=== PATIENT | female | born 2000 | race Caucasian/White ===

== ENCOUNTER 2024-12-26 07:34 | Observation (INO) ==
[2024-12-26] MEDS: SODIUM CHLORIDE 0.9% 1,000 ML IV STA (08:16)
[2024-12-26 08:30] LABS: Basophils # (auto) 0.08 K/uL (0.00-0.20); Eosinophils # (auto) 0.88 K/uL (0.00-0.50); Eosinophils % (auto) 11.3 %; Hematocrit (blood only) 33.8 % (37.0-47.0); Hemoglobin 11.8 g/dl (12.0-16.0); Immature Granulocytes # (auto) 0.02 K/uL (0.01-0.20); Immature Granulocytes % (auto) 0.3 %; Lymphocytes # (auto) 1.71 K/uL (1.20-3.40); Lymphocytes % (auto) 21.9 %; Mean Corpuscular Hemoglobin 33.4 pg (25.0-34.0); Mean Corpuscular Hgb Conc 34.9 g/dL (32.0-36.0); Mean Corpuscular Volume 95.8 fL (80.0-100.0); Mean Platelet Volume 12.1 fL (9.4-12.4); Monocytes # (auto) 0.46 K/uL (0.11-0.59); Monocytes % (auto) 5.9 %; Neutrophils # (auto) 4.66 K/uL (1.40-6.50); Neutrophils % (auto) 59.6 %; Platelet Count 152 K/uL (130-400); RDW Coefficient of Variation 12.1 % (11.5-14.5); RDW Standard Deviation 41.8 fL (36.4-46.3); Red Blood Count 3.53 M/uL (4.20-5.40); White Blood Count 7.81 K/ul (4.8-10.8)
[2024-12-26] MEDS: SODIUM CHLORIDE 0.9% 1,000 ML IV ONE (08:39)
[2024-12-26 09:13] LABS: Pregnancy Test, Serum Negative (Negative)
[2024-12-26 09:25] LABS: Appearance Urine Clear (Clear); Bacteria Urine Automated 1+ (None Seen); Bilirubin Urine Negative (Negative); Blood Urine Negative (Negative); Cast Urine Automated 0-2 /lpf (0-2); Color Urine Yellow; Glucose Urine UA Negative (Negative); Ketones Urine Trace (Negative); Leukocyte Esterase Urine 2+ (Negative); Nitrite Urine Negative (Negative); Protein Urine Negative (Negative); RBC Urine Automated 0-2 /hpf (0-2); Specific Gravity Urine 1.013 (1.000-1.030); Urobilinogen Urine Negative (Negative); pH Urine 5.5 (4.5-7.5)
[2024-12-26 09:37] LABS: Albumin Level 4.4 gm/dl (3.4-5.0); Bilirubin,Total 0.7 mg/dl (0.2-1.0); Potassium 3.8 mmol/L (3.5-5.1)
[2024-12-26 09:43] LABS: Albumin Globulin Ratio 2.1 (0.9-2); Creatinine Clr Calc Pharmacy 99.4 ml/min; Globulin 2.1 gm/dl (2.5-4.0); Total Protein 6.5 gm/dl (6.0-8.3)
[2024-12-26] MEDS: OPTIRAY 320 100ml IV ONE (09:53)
--- NOTE | 2024-12-26 10:20 | CT Scan Report ---
Clinical History: Abdominal pain Technique: Axial computed tomography images were obtained of the abdomen and pelvis after the administration of intravenous contrast. No prior CT is available for comparison. Findings: The liver is overall of normal size, attenuation, and contour with no sign of cirrhosis or significant fatty infiltration. No liver mass lesion is seen. The portal vein is patent. The gallbladder appears unremarkable. No bile duct dilatation is noted. The spleen is of normal size. No focal splenic lesion is evident. The pancreas appears normal with no sign of acute or chronic pancreatitis and no mass lesion noted. The pancreatic duct is of normal caliber. The adrenal glands appear unremarkable. No definite renal or proximal ureteral calculi are seen on this contrast-enhanced study. There is no hydronephrosis or perinephric stranding. No renal mass lesion is identified. The aorta is of normal caliber. No abdominal adenopathy is seen. The stomach appears normal. There is no sign of small bowel obstruction. The colon appears unremarkable. The appendix appears normal also. No free intraperitoneal air is identified. There is a moderate amount of mild high attenuation ascites, concerning for hemoperitoneum No distal ureteral or bladder calculi are seen. No bladder mass lesion is evident. The iliac arteries are of normal caliber. No pelvic adenopathy is noted. There is a 5.3 cm complex cyst posterior to the uterus, likely arising from the left ovary The lungs bases appear clear. No fracture is identified. No focal osseous lesion is seen Impression: 1. 5.3 cm complex left ovarian cyst, likely a hemorrhagic cyst 2. Moderate amount of hemoperitoneum, which may be due to ovarian cyst rupture ACT 112: Positive. There are findings on this exam that require communication between the performing entity and the patient following Patient Test Result Information Act ([place] ACT 112) guidelines. Electronically signed by Mt Morrissey 12-26-2024 10:20 AM
[2024-12-26] MEDS: ACETAMINOPHEN 1,000 MG/100 ML VIAL IV STA (10:48)
--- NOTE | 2024-12-26 11:04 | Emergency Department Note ---
Impression & Plan Hemoperitoneum, Pelvic pain, Hemorrhagic cyst of left ovary ED Provider Note CHIEF COMPLAINT: abdominal pain HISTORY OF PRESENT ILLNESS: This 24-year-old female patient past medical history of mood disorder presents to the emergency department with complaints of lower abdominal pain, pain into the rectum with some dysuria. Patient states she had sexual intercourse with her boyfriend yesterday at about 4 p.m. Pain began at that time. Patient is complaining of pain primarily of the left lower quadrant but radiates up to the diaphragm and into the right shoulder. She denies any vaginal discharge or bleeding. She denies likelihood of . She has not currently taking control REVIEW OF SYSTEMS: A review of systems was performed with positives and pertinent negatives listed in the history of present illness. 10 systems were reviewed and are otherwise negative. ALLERGIES: see below MEDICATIONS: see below PMH: see below SOCIAL HISTORY: see below DDx: ovarian cyst, vaginal rupture, diverticulitis, kidney stone, ovarian torsion, ectopic among others. PHYSICAL EXAM: Vital signs reviewed. General: Well-appearing 24-year-old female, in no significant distress. HEENT: No scleral icterus, PERRLA, neck supple. Atraumatic. Cardiovascular: Regular rate and rhythm, no extra sounds. Pulmonary: Clear to auscultation bilaterally, normal work of breathing. Abdomen: Soft, Diffusely tender with some rebound and guarding. Most significant in the left lower quadrant, nondistended, positive bowel sounds. Musculoskeletal: Atraumatic, no peripheral edema. : Normal external female genitals, small superficial tears at the 6 o'clock position at the vaginal introitus. No active bleeding. 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 Cervix appears to be normal but slightly irritated. Neurologic: Patient awake alert and oriented x 3, speech is clear Skin: Warm, dry, no rash EMERGENCY DEPARTMENT COURSE/MDM: This patient was evaluated and appeared to be in no significant distress. IV access was obtained and laboratory work was drawn. The patient was placed on the hat ironer and was noted to be in a normal sinus rhythm. Patient was hydrated with normal saline solution and initially given 10 mg of IV Toradol. Ultrasound of the pelvis was considered however due to the amount of peritonitis the patient had on exam, CT abdomen and pelvis with IV contrast was pursued. Patient's laboratory work initially reveals a hemoglobin of 11.8. test is negative. UA is fairly reassuring and does appear to be slightly contaminated. CT imaging reveals a left ovarian complex cyst with a hemorrhagic component. There is a moderate amount of hemoperitoneum. The patient requested additional pain medicine but "nothing strong." She was given IV acetaminophen but later required IV morphine and Zofran. Repeat hemoglobin was performed at 9.3. Given the drop in hemoglobin and only 1 L of IV normal saline solution, patient was discussed with SAFETY MANAGER. Dr. Simmons will evaluate the patient for further management. Patient expressed understanding of the plan and agreed. [address] Simmons of SAFETY MANAGER. We have agreed to repeat a hemoglobin now which would be the 3-hour cielo. Will perform pelvic exam and reassess the patient's pain over the next 30 minutes after the IV Tylenol. Patient declined anything stronger at this time. MONITORING: An order for cardiac monitoring was placed and the patient is noted to be in a normal sinus rhythm at 65 beats per minute. RADIOLOGY: CT of the abdomen pelvis: Impression: 1. 5.3 cm complex left ovarian cyst, likely a hemorrhagic cyst 2. Moderate amount of hemoperitoneum, which may be due to ovarian cyst rupture EKG:To my interpretation reveals normal sinus rhythm with sinus arrhythmia at [address] segments. QTc of 452. DISPOSITION: Admission Past Med/Surg History Problem List Painful coitus, female Hemorrhagic cyst of left ovary (Acute) Pelvic pain (Acute) Hemoperitoneum (Acute) Social History Smoking Status: Never smoker Second Hand Exposure: Yes; Do You Dip or Chew Tobacco: No; Hx Alcohol Use: Yes Alcohol type: beer and hard liquor Hx Substance Use: No Preferred Language: Lithuanian Communication Ability: Effective Automotive Service Advisor Required: No Beliefs That Will Affect Care: None Current Living Situation: Family Current Living Situation Comment: with dad Other Information That Helps Us Care for You: No Feels Safe at Home: Yes Safety Concerns: Feels Safe At This Time Allergies Allergies Allergy/AdvReac Type Severity Reaction Status Date / Time No Known Allergies Allergy Unverified 12/26/24 10:18 Home Meds Home Medications Medication Instructions Recorded Confirmed cholecalciferol (vitamin D3) 25 25 mcg PO DAILY 12/26/24 12/26/24 mcg (1,000 unit) tablet (Vitamin D3) esomeprazole magnesium 20 mg 20 mg PO QAM 12/26/24 12/26/24 capsule,delayed release ferrous sulfate 325 mg (65 mg 325 mg PO HS 12/26/24 12/26/24 iron) tablet (iron) sertraline 25 mg tablet 25 mg PO HS 12/26/24 12/26/24 vitamin K2 45 mcg capsule 45 mcg PO DAILY 12/26/24 12/26/24 Results & Data (ED) Vital Signs Vital Signs - 24 hr 12/26/24 07:35 12/26/24 07:52 12/26/24 07:53 Temperature 36.2 C L Temperature Source Temporal Artery Scan Pulse Rate 105 H 100 H Pulse Rate [Apical] 93 H Respiratory Rate 20 14 17 Respiratory Effort / Characteristics Non-Labored Spontaneous Respiratory Depth Normal Respiratory Pattern Regular Blood Pressure 124/84 Blood Pressure [Right Arm] 119/77 Blood Pressure Mean 97 Blood Pressure Mean [Right Arm] 91 Blood Pressure Position Sitting Pulse Oximetry 100 99 99 Oxygen Delivery Method Room Air Room Air Room Air Sepsis Recent Fever Within 48 Hours No Sepsis New/Unexplained Change in Mental Status N/A Sepsis Action Taken by Nursing No Action Required 12/26/24 10:41 12/26/24 12:09 Temperature Temperature Source Pulse Rate Pulse Rate [Apical] 76 66 Respiratory Rate 12 22 Respiratory Effort / Characteristics Respiratory Depth Respiratory Pattern Blood Pressure Blood Pressure [Right Arm] 110/62 97/54 L Blood Pressure Mean Blood Pressure Mean [Right Arm] 78 68 Blood Pressure Position Pulse Oximetry 100 98 Oxygen Delivery Method Room Air Room Air Sepsis Recent Fever Within 48 Hours Sepsis New/Unexplained Change in Mental Status Sepsis Action Taken by Residential Medications Current Medication List: was personally reviewed by me Laboratory Data Attestation: I reviewed the patient's lab results. 12/27/24 06:33 12/26/24 08:11 Lab Results 12/26/24 12/26/24 12/26/24 Range/Units 08:11 09:01 11:30 WBC 7.81 (4.8-10.8) K/ul RBC 3.53 L (4.20-5.40) M/uL Hgb 11.8 L 9.5 L (12.0-16.0) g/dl Hct 33.8 L 27.4 L (37.0-47.0) % MCV 95.8 (80.0-100.0) fL MCH 33.4 (25.0-34.0) pg MCHC 34.9 (32.0-36.0) g/dL RDW Std Deviation 41.8 (36.4-46.3) fL RDW Coeff of Higinio 12.1 (11.5-14.5) % Plt Count 152 (130-400) K/uL MPV 12.1 (9.4-12.4) fL Immature Gran % (Auto) 0.3 % Neut % (Auto) 59.6 % Lymph % (Auto) 21.9 % Giles % (Auto) 5.9 % Eos % (Auto) 11.3 % Baso % (Auto) 1.0 % Neut # (Auto) 4.66 (1.40-6.50) K/uL Lymph # (Auto) 1.71 (1.20-3.40) K/uL Giles # (Auto) 0.46 (0.11-0.59) K/uL Eos # (Auto) 0.88 H (0.00-0.50) K/uL Baso # (Auto) 0.08 (0.00-0.20) K/uL Immature Gran # (Auto) 0.02 (0.01-0.20) K/uL PT 10.8 (9.0-12.0) Seconds INR 1.0 (0.9-1.1) APTT 25 (21-31) Seconds PTT Ratio 0.9 Sodium 138 (136-145) mmol/L Potassium 3.8 (3.5-5.1) mmol/L Chloride 105 (98-107) mmol/L Carbon Dioxide 22 (21-32) mmol/L Anion Gap 11 (3-11) BUN 16 (6-23) mg/dl Creatinine 0.89 (0.6-1.2) mg/dl Est Cr Clr Drug Dosing 99.4 ml/min eGFR 93.37 BUN/Creatinine Ratio 18.0 (10-20) Glucose 91 (70-99(Fasting)) mg/dl Calcium 9.4 (8.6-10.3) mg/dl Total Bilirubin 0.7 (0.2-1.0) mg/dl AST 15 (13-39) U/L ALT 12 (7-52) U/L Alkaline Phosphatase 73 (34-104) U/L Total Protein 6.5 (6.0-8.3) gm/dl Albumin 4.4 (3.4-5.0) gm/dl Globulin 2.1 L (2.5-4.0) gm/dl Albumin/Globulin Ratio 2.1 H (0.9-2) Lipase 17 (11-82) U/L HCG, Qual Negative (Negative) HCG, Quant < 1 mIU/ml Urine Color Yellow Urine Appearance Clear (Clear) Urine pH 5.5 (4.5-7.5) Ur Specific [place] 1.013 (1.000-1.030) Urine Protein Negative (Negative) Urine Glucose (UA) Negative (Negative) Urine Ketones Trace H (Negative) Urine Blood Negative (Negative) Urine Nitrite Negative (Negative) Urine Bilirubin Negative (Negative) Urine Urobilinogen Negative (Negative) Ur Leukocyte Esterase 2+ H (Negative) Urine WBC (Auto) 6-10 H (0-5) /hpf Urine RBC (Auto) 0-2 (0-2) /hpf U Hyaline Cast (Auto) 0-2 (0-2) /lpf U Epithel Cells (Auto) 6-10 H (0-2) /hpf Urine Bacteria (Auto) 1+ H (None Seen) C.trachomatis RNA (NotDetected) N.gonorrhoeae RNA (NotDetected) T.vaginalis (Amp Det) (NotDetected) 12/26/24 Range/Units 12:20 WBC (4.8-10.8) K/ul RBC (4.20-5.40) M/uL Hgb (12.0-16.0) g/dl Hct (37.0-47.0) % MCV (80.0-100.0) fL MCH (25.0-34.0) pg MCHC (32.0-36.0) g/dL RDW Std Deviation (36.4-46.3) fL RDW Coeff of Higinio (11.5-14.5) % Plt Count (130-400) K/uL MPV (9.4-12.4) fL Immature Gran % (Auto) % Neut % (Auto) % Lymph % (Auto) % Giles % (Auto) % Eos % (Auto) % Baso % (Auto) % Neut # (Auto) (1.40-6.50) K/uL Lymph # (Auto) (1.20-3.40) K/uL Giles # (Auto) (0.11-0.59) K/uL Eos # (Auto) (0.00-0.50) K/uL Baso # (Auto) (0.00-0.20) K/uL Immature Gran # (Auto) (0.01-0.20) K/uL PT (9.0-12.0) Seconds INR (0.9-1.1) APTT (21-31) Seconds PTT Ratio Sodium (136-145) mmol/L Potassium (3.5-5.1) mmol/L Chloride (98-107) mmol/L Carbon Dioxide (21-32) mmol/L Anion Gap (3-11) BUN (6-23) mg/dl Creatinine (0.6-1.2) mg/dl Est Cr Clr Drug Dosing ml/min eGFR BUN/Creatinine Ratio (10-20) Glucose (70-99(Fasting)) mg/dl Calcium (8.6-10.3) mg/dl Total Bilirubin (0.2-1.0) mg/dl AST (13-39) U/L ALT (7-52) U/L Alkaline Phosphatase (34-104) U/L Total Protein (6.0-8.3) gm/dl Albumin (3.4-5.0) gm/dl Globulin (2.5-4.0) gm/dl Albumin/Globulin Ratio (0.9-2) Lipase (11-82) U/L HCG, Qual (Negative) HCG, Quant mIU/ml Urine Color Urine Appearance (Clear) Urine pH (4.5-7.5) Ur Specific [place] (1.000-1.030) Urine Protein (Negative) Urine Glucose (UA) (Negative) Urine Ketones (Negative) Urine Blood (Negative) Urine Nitrite (Negative) Urine Bilirubin (Negative) Urine Urobilinogen (Negative) Ur Leukocyte Esterase (Negative) Urine WBC (Auto) (0-5) /hpf Urine RBC (Auto) (0-2) /hpf U Hyaline Cast (Auto) (0-2) /lpf U Epithel Cells (Auto) (0-2) /hpf Urine Bacteria (Auto) (None Seen) C.trachomatis RNA Not Detected (NotDetected) N.gonorrhoeae RNA Not Detected (NotDetected) T.vaginalis (Amp Det) Not Detected (NotDetected) Administered Medications Acetaminophen (Ofirmev) 1,000 mg in 100 mls @ 400 mls/hr IV Q8H PRN PRN Reason: Pain Stop: 12/29/24 12:28 Last Infusion: 12/26/24 20:00 Dose: Infused Documented By: Admin: 12/26/24 19:32 Dose: 400 mls/hr Documented By: BRIDGET Lactated Ringer's (Lr) 1,000 mls @ 125 mls/hr IV .Q8H TEODORA Stop: 12/29/24 14:29 Last Admin: 12/26/24 21:28 Dose: Not Given Documented By: Admin: 12/26/24 14:47 Dose: Not Given Documented By: JEAN-PIERRE Sertraline HCl (Sertraline Hcl 50 Mg Tablet) 25 mg PO HS TEODORA Stop: 01/25/25 20:59 Last Admin: 12/26/24 21:31 Dose: 25 mg Documented By: BRIDGET Tramadol HCl (Tramadol Hcl 50 Mg Tablet) 50 mg PO Q4H PRN PRN Reason: Pain Stop: 01/26/25 00:56 Last Admin: 12/27/24 01:09 Dose: 50 mg Documented By: BRIDGET Discontinued Medications Fluconazole (Fluconazole 50 Mg Tab) 150 mg PO NOW ONE Stop: 12/26/24 12:28 Last Admin: 12/26/24 13:29 Dose: 150 mg Documented By: WOODROW Sodium Chloride (Nss) 1,000 mls @ 999 mls/hr IV .Q1H1M STA Stop: 12/26/24 08:45 Last Infusion: 12/26/24 09:08 Dose: Infused Documented By: Admin: 12/26/24 08:16 Dose: 999 mls/hr Documented By: WOODROW Sodium Chloride (Nss) 1,000 mls @ 999 mls/hr IV .Q1H1M ONE Stop: 12/26/24 09:27 Last Admin: 12/26/24 08:39 Dose: Not Given Documented By: WOODROW Acetaminophen (Ofirmev) 1,000 mg in 100 mls @ 400 mls/hr IV NOW STA Stop: 12/26/24 10:46 Last Infusion: 12/26/24 11:35 Dose: Infused Documented By: Admin: 12/26/24 10:48 Dose: 400 mls/hr Documented By: WOODROW Lactated Ringer's (Lr) 1,000 mls @ 125 mls/hr IV .Q8H TEODORA Stop: 12/29/24 12:44 Last Infusion: 12/27/24 02:10 Dose: Infused Documented By: Admin: 12/26/24 19:33 Dose: 125 mls/hr Documented By: Infusion: 12/26/24 17:46 Dose: Infused Documented By: Infusion: 12/26/24 15:05 Dose: 125 mls/hr Documented By: Admin: 12/26/24 14:25 Dose: 999 mls/hr Documented By: JEAN-PIERRE Ioversol (Optiray 320 100ml) 93 ml IV ONCE ONE Stop: 12/26/24 09:53 Last Admin: 12/26/24 09:53 Dose: 93 ml Documented By: STEVEN Morphine Sulfate (Morphine Sulfate 4 Mg/Ml 1 Ml Carp\\Vial) 4 mg IV NOW STA Stop: 12/26/24 11:51 Last Admin: 12/26/24 11:54 Dose: 4 mg Documented By: WOODROW Ondansetron HCl (Ondansetron Inj 2 Mg/Ml 2 Ml Vial) 4 mg IV NOW STA Stop: 12/26/24 11:51 Last Admin: 12/26/24 11:55 Dose: 4 mg Documented By: WOODROW Imaging Data Radiologist's Impression: Abdomen/Pelvis CT 12/26/24 08:26 Clinical History: Abdominal pain Technique: Axial computed tomography images were obtained of the abdomen and pelvis after the administration of intravenous contrast. No prior CT is available for comparison. Findings: The liver is overall of normal size, attenuation, and contour with no sign of cirrhosis or significant fatty infiltration. No liver mass lesion is seen. The portal vein is patent. The gallbladder appears unremarkable. No bile duct dilatation is noted. The spleen is of normal size. No focal splenic lesion is evident. The pancreas appears normal with no sign of acute or chronic pancreatitis and no mass lesion noted. The pancreatic duct is of normal caliber. The adrenal glands appear unremarkable. No definite renal or proximal ureteral calculi are seen on this contrast-enhanced study. There is no hydronephrosis or perinephric stranding. No renal mass lesion is identified. The aorta is of normal caliber. No abdominal adenopathy is seen. The stomach appears normal. There is no sign of small bowel obstruction. The colon appears unremarkable. The appendix appears normal also. No free intraperitoneal air is identified. There is a moderate amount of mild high attenuation ascites, concerning for hemoperitoneum No distal ureteral or bladder calculi are seen. No bladder mass lesion is evident. The iliac arteries are of normal caliber. No pelvic adenopathy is noted. There is a 5.3 cm complex cyst posterior to the uterus, likely arising from the left ovary The lungs bases appear clear. No fracture is identified. No focal osseous lesion is seen Impression: 1. 5.3 cm complex left ovarian cyst, likely a hemorrhagic cyst 2. Moderate amount of hemoperitoneum, which may be due to ovarian cyst rupture ACT 112: Positive. There are findings on this exam that require communication between the performing entity and the patient following Patient Test Result Information Act ([place] ACT 112) guidelines. Electronically signed by Mt Morrissey 12-26-2024 10:20 AM Discharge Plan Visit Data Chief Complaint: Pelvic Pain Stated Complaint: PELVIC/RECTAL PAIN, SHOULDER PAIN ED Provider: Dunia Marks Discharge Problem: Hemoperitoneum, Pelvic pain, Hemorrhagic cyst of left ovary Patient Disposition: Admitted As Inpatient Condition: Fair Discharge Instructions Interventions: ED Discharge Assessment Last Done: 12/26/24 13:56
[2024-12-26 11:52] LABS: Hematocrit (blood only) 27.4 % (37.0-47.0); Hemoglobin 9.5 g/dl (12.0-16.0)
[2024-12-26] MEDS: MoRPHine SULFATE 4 MG/ML 1 ML CARP\\VIAL IV STA (11:54)
[2024-12-26] MEDS: ONDANSETRON INJ 2 MG/ML 2 ML VIAL IV STA (11:55)
[2024-12-26] MEDS ORDERED: ONDANSETRON INJ 2 MG/ML 2 ML VIAL IV PRN (12:27)
[2024-12-26] MEDS ORDERED: MoRPHine SULFATE 4 MG/ML 1 ML CARP\\VIAL IV PRN (12:29)
[2024-12-26 13:13] LABS: Calcium 9.4 mg/dl (8.6-10.3)
[2024-12-26] MEDS: FLUCONAZOLE 50 MG TAB PO ONE (13:29)
[2024-12-26 14:18] LABS: Partial Thromboplastin Ratio 0.9; Partial Thromboplastin Time 25 Seconds (21-31); Prothrombin Time 10.8 Seconds (9.0-12.0)
[2024-12-26] MEDS: LACTATED RINGER'S 1,000 ML IV SCH ×2 (14:25→14:47)
--- NOTE | 2024-12-26 15:01 | History & Physical Report ---
Date of Service December 26, 2024 Assessment & Plan (1) Hemorrhagic cyst of left ovary: Plan: 24 -year-old G0 female presenting to ER with postcoital pain started around 4 PM yesterday progressively worsened over time and radiating to her upper abdomen right shoulder, CT of abdomen showing moderate amount of hemoperitoneum, Vital signs today afebrile, patient clinically looks stable and talking comfortably, Initial minor drop in H&H, repeat is pending this afternoon, Will recheck with pelvic/abdominal ultrasound for the amount of blood, Discussed the findings and hemorrhagic corpus luteum which can be self-limited and bleeding may stop and blood can be reabsorbed versus if this amount of blood is significant she may need to go for surgery. She understand the risks of surgery including but not limited to risk of general anesthesia, bleeding, infection, injury to surrounding organs like bowels bladder, more surgeries to correct complications and longer stay in the hospital, Patient understands all and agrees with plan, Will continue to monitor closely in [facility] floor and repeat H&H and serial exams and decide further plan, All questions were answered. (2) Pelvic pain: (3) Hemoperitoneum: (4) Painful coitus, female: Admission and Anticipated Discharge Date Admission Date: December 26, 2024 History of Present Illness Chief Complaint: Abdominal/pelvic pain Primary Care Provider: NO PCP patient is a 24-year-old G0 female who started to have lower pelvic, rectal pain after sexual intercourse around 4 PM. Pain got worse over time, radiated to her mid abdomen and then to right upper abdomen and then shoulder during the night. She had difficulty sleeping because of pain. She came to the ER this morning and received IV Tylenol for pain which helped little bit. She did had to receive IV morphine about 3 hours ago and it still helping. Her pain during sitting and resting is 3-4 out of 10 but when she lays down flat it radiates to her shoulder it gets worse to 8/10. She denies nausea vomiting, dizziness, lightheadedness, problems with urination or bowel movements. She has been sexually active with her boyfriend for the last 6 months they use condoms for contraception no other methods. This is her second partner in her [place]. She denies any history of STDs, no history of chlamydia, gonorrhea, herpes, no history of abnormal Pap smears. Her periods are every 5 weeks they last long and heavy she has been diagnosed with anemia and she has been on oral iron for that. She had CT scan ordered here in the morning which showed moderate amount of fluid in the pelvis, and left ovarian cyst which is suggesting hemorrhagic corpus luteum cyst. Her initial H&H was stable and dropped and then decision was made to admit her to the hospital for observation and possible surgery if H&H will keep dropping. Allergies Allergy/AdvReac Type Severity Reaction Status Date / Time No Known Allergies Allergy Unverified 12/26/24 10:18 Home Medications Medication Instructions Recorded Confirmed Type cholecalciferol (vitamin D3) 25 25 mcg PO DAILY 12/26/24 12/26/24 History mcg (1,000 unit) tablet (Vitamin D3) esomeprazole magnesium 20 mg 20 mg PO QAM 12/26/24 12/26/24 History capsule,delayed release ferrous sulfate 325 mg (65 mg 325 mg PO HS 12/26/24 12/26/24 History iron) tablet (iron) sertraline 25 mg tablet 25 mg PO HS 12/26/24 12/26/24 History vitamin K2 45 mcg capsule 45 mcg PO DAILY 12/26/24 12/26/24 History Patient History Social History Smoking Status: Never smoker Preferred Language: Yoruba Feels Safe at Home: Yes Review of Systems as per Subjective / HPI Physical Exam Constitutional: WD/WN, vitals as above well developed, well nourished and comfortable Gastrointestinal (Abdomen): normal bowel sounds, soft, nontender, no hepatosplenomegaly (RLQ and LLQ tenderness, mild rebound on the left, still soft) Genitourinary: performed in the ER, cultures were taken Results & Data Vital Signs (Past 12 Hours) Vital Signs Temp Pulse Pulse Resp BP BP Pulse Ox 12/26/24 13:56 65 20 117/68 98 12/26/24 12:33 69 19 97/54 L 98 12/26/24 12:33 69 19 98 12/26/24 12:09 66 22 97/54 L 98 12/26/24 10:41 76 12 110/62 100 12/26/24 07:53 100 H 17 99 12/26/24 07:52 93 H 14 119/77 99 12/26/24 07:35 36.2 C L 105 H 20 124/84 100 O2 Del Method 12/26/24 13:56 Room Air 12/26/24 12:33 Room Air 12/26/24 12:33 Room Air 12/26/24 12:09 Room Air 12/26/24 10:41 Room Air 12/26/24 07:53 Room Air 12/26/24 07:52 Room Air 12/26/24 07:35 Room Air Laboratory Results Lab Results 12/26/24 12/26/24 12/26/24 Range/Units 08:11 09:01 11:30 WBC 7.81 (4.8-10.8) K/ul RBC 3.53 L (4.20-5.40) M/uL Hgb 11.8 L 9.5 L (12.0-16.0) g/dl Hct 33.8 L 27.4 L (37.0-47.0) % MCV 95.8 (80.0-100.0) fL MCH 33.4 (25.0-34.0) pg MCHC 34.9 (32.0-36.0) g/dL RDW Std Deviation 41.8 (36.4-46.3) fL RDW Coeff of Higinio 12.1 (11.5-14.5) % Plt Count 152 (130-400) K/uL MPV 12.1 (9.4-12.4) fL Immature Gran % (Auto) 0.3 % Neut % (Auto) 59.6 % Lymph % (Auto) 21.9 % [place] % (Auto) 5.9 % Eos % (Auto) 11.3 % Baso % (Auto) 1.0 % Neut # (Auto) 4.66 (1.40-6.50) K/uL Lymph # (Auto) 1.71 (1.20-3.40) K/uL [place] # (Auto) 0.46 (0.11-0.59) K/uL Eos # (Auto) 0.88 H (0.00-0.50) K/uL Baso # (Auto) 0.08 (0.00-0.20) K/uL Immature Gran # (Auto) 0.02 (0.01-0.20) K/uL PT 10.8 (9.0-12.0) Seconds INR 1.0 (0.9-1.1) APTT 25 (21-31) Seconds PTT Ratio 0.9 Sodium 138 (136-145) mmol/L Potassium 3.8 (3.5-5.1) mmol/L Chloride 105 (98-107) mmol/L Carbon Dioxide 22 (21-32) mmol/L Anion Gap 11 (3-11) BUN 16 (6-23) mg/dl Creatinine 0.89 (0.6-1.2) mg/dl Est Cr Clr Drug Dosing 99.4 ml/min eGFR 93.37 BUN/Creatinine Ratio 18.0 (10-20) Glucose 91 (70-99(Fasting)) mg/dl Calcium 9.4 (8.6-10.3) mg/dl Total Bilirubin 0.7 (0.2-1.0) mg/dl AST 15 (13-39) U/L ALT 12 (7-52) U/L Alkaline Phosphatase 73 (34-104) U/L Total Protein 6.5 (6.0-8.3) gm/dl Albumin 4.4 (3.4-5.0) gm/dl Globulin 2.1 L (2.5-4.0) gm/dl Albumin/Globulin Ratio 2.1 H (0.9-2) Lipase 17 (11-82) U/L HCG, Qual Negative (Negative) HCG, Quant < 1 mIU/ml Urine Color Yellow Urine Appearance Clear (Clear) Urine pH 5.5 (4.5-7.5) Ur Specific [place] 1.013 (1.000-1.030) Urine Protein Negative (Negative) Urine Glucose (UA) Negative (Negative) Urine Ketones Trace H (Negative) Urine Blood Negative (Negative) Urine Nitrite Negative (Negative) Urine Bilirubin Negative (Negative) Urine Urobilinogen Negative (Negative) Ur Leukocyte Esterase 2+ H (Negative) Urine WBC (Auto) 6-10 H (0-5) /hpf Urine RBC (Auto) 0-2 (0-2) /hpf U Hyaline Cast (Auto) 0-2 (0-2) /lpf U Epithel Cells (Auto) 6-10 H (0-2) /hpf Urine Bacteria (Auto) 1+ H (None Seen) Diagnostic Findings CT abd/ pelvis normal except : Impression: 1. 5.3 cm complex left ovarian cyst, likely a hemorrhagic cyst 2. Moderate amount of hemoperitoneum, which may be due to ovarian cyst rupture
[2024-12-26 15:43] LABS: Basophils # (auto) 0.09 K/uL (0.00-0.20); Basophils % (auto) 1.2 %; Eosinophils # (auto) 0.86 K/uL (0.00-0.50); Eosinophils % (auto) 11.2 %; Hematocrit (blood only) 27.3 % (37.0-47.0); Hemoglobin 9.3 g/dl (12.0-16.0); Immature Granulocytes # (auto) 0.03 K/uL (0.01-0.20); Immature Granulocytes % (auto) 0.4 %; Lymphocytes # (auto) 2.29 K/uL (1.20-3.40); Lymphocytes % (auto) 29.9 %; Mean Corpuscular Hgb Conc 34.1 g/dL (32.0-36.0); Mean Corpuscular Volume 96.8 fL (80.0-100.0); Mean Platelet Volume 11.6 fL (9.4-12.4); Monocytes # (auto) 0.49 K/uL (0.11-0.59); Monocytes % (auto) 6.4 %; Neutrophils # (auto) 3.91 K/uL (1.40-6.50); Neutrophils % (auto) 50.9 %; Platelet Count 124 K/uL (130-400); RDW Coefficient of Variation 12.2 % (11.5-14.5); RDW Standard Deviation 43.7 fL (36.4-46.3); Red Blood Count 2.82 M/uL (4.20-5.40); White Blood Count 7.67 K/ul (4.8-10.8)
--- NOTE | 2024-12-26 16:52 | Gynecologic Progress Note ---
Date of Service December 26, 2024 Assessment & Plan Admission and Anticipated Discharge Date Admission Date: December 26, 2024 Subjective Patient is reevaluated. She came from ultrasound. She feels well no compl aints when she is sitting up, pain is on her right shoulder when she lays down flat. She has ambulated to bathroom without dizziness or lightheadedness. Ultrasound showed fluid in right and left upper quadrants. H&H is stable. Vital signs stable, patient is clinically stable, not in pain, using her phone. Discussed the findings I recommended observation overnight with repeat blood count at 7 PM and then depending on the results repeated to overnight and in the morning. Understands if vital signs became unstable or H&H drops significantly she may need to have laparoscopy. Continue monitor closely, All questions were answered. Lab Results 12/26/24 12/26/24 12/26/24 Range/Units 08:11 09:01 11:30 WBC 7.81 (4.8-10.8) K/ul RBC 3.53 L (4.20-5.40) M/uL Hgb 11.8 L 9.5 L (12.0-16.0) g/dl Hct 33.8 L 27.4 L (37.0-47.0) % MCV 95.8 (80.0-100.0) fL MCH 33.4 (25.0-34.0) pg MCHC 34.9 (32.0-36.0) g/dL RDW Std Deviation 41.8 (36.4-46.3) fL RDW Coeff of Higinio 12.1 (11.5-14.5) % Plt Count 152 (130-400) K/uL MPV 12.1 (9.4-12.4) fL Immature Gran % (Auto) 0.3 % Neut % (Auto) 59.6 % Lymph % (Auto) 21.9 % [place] % (Auto) 5.9 % Eos % (Auto) 11.3 % Baso % (Auto) 1.0 % Neut # (Auto) 4.66 (1.40-6.50) K/uL Lymph # (Auto) 1.71 (1.20-3.40) K/uL [place] # (Auto) 0.46 (0.11-0.59) K/uL Eos # (Auto) 0.88 H (0.00-0.50) K/uL Baso # (Auto) 0.08 (0.00-0.20) K/uL Immature Gran # (Auto) 0.02 (0.01-0.20) K/uL PT 10.8 (9.0-12.0) Seconds INR 1.0 (0.9-1.1) APTT 25 (21-31) Seconds PTT Ratio 0.9 Sodium 138 (136-145) mmol/L Potassium 3.8 (3.5-5.1) mmol/L Chloride 105 (98-107) mmol/L Carbon Dioxide 22 (21-32) mmol/L Anion Gap 11 (3-11) BUN 16 (6-23) mg/dl Creatinine 0.89 (0.6-1.2) mg/dl Est Cr Clr Drug Dosing 99.4 ml/min eGFR 93.37 BUN/Creatinine Ratio 18.0 (10-20) Glucose 91 (70-99(Fasting)) mg/dl Calcium 9.4 (8.6-10.3) mg/dl Total Bilirubin 0.7 (0.2-1.0) mg/dl AST 15 (13-39) U/L ALT 12 (7-52) U/L Alkaline Phosphatase 73 (34-104) U/L Total Protein 6.5 (6.0-8.3) gm/dl Albumin 4.4 (3.4-5.0) gm/dl Globulin 2.1 L (2.5-4.0) gm/dl Albumin/Globulin Ratio 2.1 H (0.9-2) Lipase 17 (11-82) U/L HCG, Qual Negative (Negative) HCG, Quant < 1 mIU/ml Urine Color Yellow Urine Appearance Clear (Clear) Urine pH 5.5 (4.5-7.5) Ur Specific [place] 1.013 (1.000-1.030) Urine Protein Negative (Negative) Urine Glucose (UA) Negative (Negative) Urine Ketones Trace H (Negative) Urine Blood Negative (Negative) Urine Nitrite Negative (Negative) Urine Bilirubin Negative (Negative) Urine Urobilinogen Negative (Negative) Ur Leukocyte Esterase 2+ H (Negative) Urine WBC (Auto) 6-10 H (0-5) /hpf Urine RBC (Auto) 0-2 (0-2) /hpf U Hyaline Cast (Auto) 0-2 (0-2) /lpf U Epithel Cells (Auto) 6-10 H (0-2) /hpf Urine Bacteria (Auto) 1+ H (None Seen) 12/26/24 Range/Units 15:18 WBC 7.67 (4.8-10.8) K/ul RBC 2.82 L (4.20-5.40) M/uL Hgb 9.3 L (12.0-16.0) g/dl Hct 27.3 L (37.0-47.0) % MCV 96.8 (80.0-100.0) fL MCH 33.0 (25.0-34.0) pg MCHC 34.1 (32.0-36.0) g/dL RDW Std Deviation 43.7 (36.4-46.3) fL RDW Coeff of [place]inio 12.2 (11.5-14.5) % Plt Count 124 L (130-400) K/uL MPV 11.6 (9.4-12.4) fL Immature Gran % (Auto) 0.4 % Neut % (Auto) 50.9 % Lymph % (Auto) 29.9 % [place] % (Auto) 6.4 % Eos % (Auto) 11.2 % Baso % (Auto) 1.2 % Neut # (Auto) 3.91 (1.40-6.50) K/uL Lymph # (Auto) 2.29 (1.20-3.40) K/uL [place] # (Auto) 0.49 (0.11-0.59) K/uL Eos # (Auto) 0.86 H (0.00-0.50) K/uL Baso # (Auto) 0.09 (0.00-0.20) K/uL Immature Gran # (Auto) 0.03 (0.01-0.20) K/uL PT (9.0-12.0) Seconds INR (0.9-1.1) APTT (21-31) Seconds PTT Ratio Sodium (136-145) mmol/L Potassium (3.5-5.1) mmol/L Chloride (98-107) mmol/L Carbon Dioxide (21-32) mmol/L Anion Gap (3-11) BUN (6-23) mg/dl Creatinine (0.6-1.2) mg/dl Est Cr Clr Drug Dosing ml/min eGFR BUN/Creatinine Ratio (10-20) Glucose (70-99(Fasting)) mg/dl Calcium (8.6-10.3) mg/dl Total Bilirubin (0.2-1.0) mg/dl AST (13-39) U/L ALT (7-52) U/L Alkaline Phosphatase (34-104) U/L Total Protein (6.0-8.3) gm/dl Albumin (3.4-5.0) gm/dl Globulin (2.5-4.0) gm/dl Albumin/Globulin Ratio (0.9-2) Lipase (11-82) U/L HCG, Qual (Negative) HCG, Quant mIU/ml Urine Color Urine Appearance (Clear) Urine pH (4.5-7.5) Ur Specific [place] (1.000-1.030) Urine Protein (Negative) Urine Glucose (UA) (Negative) Urine Ketones (Negative) Urine Blood (Negative) Urine Nitrite (Negative) Urine Bilirubin (Negative) Urine Urobilinogen (Negative) Ur Leukocyte Esterase (Negative) Urine WBC (Auto) (0-5) /hpf Urine RBC (Auto) (0-2) /hpf U Hyaline Cast (Auto) (0-2) /lpf U Epithel Cells (Auto) (0-2) /hpf Urine Bacteria (Auto) (None Seen) Results & Data Vital Signs (Past 12 Hours) Vital Signs Temp Pulse Pulse Pulse Resp BP BP 12/26/24 16:43 36.8 C 75 18 107/72 12/26/24 14:50 36.8 C 77 18 12/26/24 13:56 65 20 117/68 12/26/24 12:33 69 19 12/26/24 12:33 69 19 12/26/24 12:09 66 22 12/26/24 10:41 76 12 12/26/24 07:53 100 H 17 12/26/24 07:52 93 H 14 12/26/24 07:35 36.2 C L 105 H 20 124/84 BP Pulse Ox O2 Del Method 12/26/24 16:43 99 Room Air 12/26/24 14:50 124/75 100 Room Air 12/26/24 13:56 98 Room Air 12/26/24 12:33 97/54 L 98 Room Air 12/26/24 12:33 98 Room Air 12/26/24 12:09 97/54 L 98 Room Air 12/26/24 10:41 110/62 100 Room Air 12/26/24 07:53 99 Room Air 12/26/24 07:52 119/77 99 Room Air 12/26/24 07:35 100 Room Air
--- NOTE | 2024-12-26 17:24 | Ultrasound Report ---
Ultrasound of upper abdomen.: Real-time examination was performed. Correlated with same-day CT. Visualized portions of the liver appears unremarkable. Abundance of fluid noted in the upper abdomen adjacent to the liver and spleen. Debris noted within the fluid. No hydronephrosis right kidney. Impression Abundance of fluid fluid in the abdomen.The origin of fluid is likely a ruptured ovarian cyst. Electronically signed by Guilherme Davis 12-26-2024 5:23 PM
--- NOTE | 2024-12-26 17:30 | Ultrasound Report ---
Ultrasound pelvis: Real-time examination along with color-flow and duplex scanning. Compared to current CT from Uterus measures 8.9 x 3.7 cm. Endometrial thickness of 13 mm. Abundance of complex fluid in the right adnexa. Fluid noted in left adnexa. A structure noted in the left adnexa which is felt to be an ovary measuring 5.6 x 4.2 cm with no evidence of torsion. Findings could be related to a ruptured ovarian cyst. Cannot exclude ruptured ectopic. Impression Findings could be related to a ruptured ovarian cyst. Cannot exclude ruptured ectopic. Electronically signed by Guilherme Davis 12-26-2024 5:30 PM
[2024-12-26 17:49] LABS: Chlam trach RNA(Genit,Ureth,Ur Not Detected (NotDetected); GC(Neis gon)RNA(Genit,Ureth,Ur Not Detected (NotDetected)
[2024-12-26 17:54] LABS: Trichomonas vag by NAA Not Detected (NotDetected)
[2024-12-26 19:18] LABS: Hematocrit (blood only) 26.1 % (37.0-47.0); Hemoglobin 8.9 g/dl (12.0-16.0)
[2024-12-26] MEDS: ACETAMINOPHEN 1,000 MG/100 ML VIAL IV PRN (19:32)
[2024-12-26 19:45] LABS: Fibrinogen 206 mg/dl (184-400)
[2024-12-26 19:52] LABS: INR 1.1 (0.9-1.1); Partial Thromboplastin Time 26 Seconds (21-31); Prothrombin Time 11.8 Seconds (9.0-12.0)
[2024-12-26] MEDS: SERTRALINE HCL 50 MG TABLET PO SCH (21:31)
--- NOTE | 2024-12-26 23:50 | Gynecologic Progress Note ---
Date of Service December 26, 2024 Assessment & Plan Admission and Anticipated Discharge Date Admission Date: December 26, 2024 Subjective Patient is sleeping Per her nurse, she has been ambulating to with no problems Not much pain, last pain med she took was IV tylenol at 19:30, did not need Morphine VSS, doing well H&H stable Coags WNL Continue to monitor closely Repeat labs in am Results & Data Vital Signs (Past 12 Hours) Vital Signs Temp Pulse Pulse Pulse Resp BP BP 12/26/24 22:52 36.6 C 68 18 122/77 12/26/24 19:19 36.8 C 70 16 112/70 12/26/24 16:43 36.8 C 75 18 107/72 12/26/24 14:50 36.8 C 77 18 12/26/24 13:56 65 20 117/68 12/26/24 12:33 69 19 12/26/24 12:33 69 19 12/26/24 12:09 66 22 BP Pulse Ox O2 Del Method 12/26/24 22:52 98 Room Air 12/26/24 19:19 99 Room Air 12/26/24 16:43 99 Room Air 12/26/24 14:50 124/75 100 Room Air 12/26/24 13:56 98 Room Air 12/26/24 12:33 97/54 L 98 Room Air 12/26/24 12:33 98 Room Air 12/26/24 12:09 97/54 L 98 Room Air
[2024-12-27] MEDS: traMADol HCL 50 MG TABLET PO PRN (01:09)
[2024-12-27 03:29] VITALS: RESP 16
[2024-12-27 07:07] LABS: Basophils # (auto) 0.07 K/uL (0.00-0.20); Basophils % (auto) 1.2 %; Eosinophils # (auto) 0.92 K/uL (0.00-0.50); Eosinophils % (auto) 16.1 %; Hematocrit (blood only) 27.5 % (37.0-47.0); Hemoglobin 9.3 g/dl (12.0-16.0); Immature Granulocytes # (auto) 0.01 K/uL (0.01-0.20); Immature Granulocytes % (auto) 0.2 %; Lymphocytes # (auto) 1.89 K/uL (1.20-3.40); Lymphocytes % (auto) 33.2 %; Mean Corpuscular Hemoglobin 33.3 pg (25.0-34.0); Mean Corpuscular Hgb Conc 33.8 g/dL (32.0-36.0); Mean Corpuscular Volume 98.6 fL (80.0-100.0); Mean Platelet Volume 12.1 fL (9.4-12.4); Monocytes # (auto) 0.37 K/uL (0.11-0.59); Monocytes % (auto) 6.5 %; Neutrophils # (auto) 2.44 K/uL (1.40-6.50); Neutrophils % (auto) 42.8 %; Platelet Count 127 K/uL (130-400); RDW Coefficient of Variation 12.5 % (11.5-14.5); RDW Standard Deviation 45.1 fL (36.4-46.3); Red Blood Count 2.79 M/uL (4.20-5.40)
[2024-12-27 07:41] LABS: INR 1.1 (0.9-1.1); Partial Thromboplastin Time 28 Seconds (21-31); Prothrombin Time 11.4 Seconds (9.0-12.0)
[2024-12-27 07:51] LABS: Fibrinogen 274 mg/dl (184-400)
--- NOTE | 2024-12-27 08:06 | Gynecologic Progress Note ---
Date of Service December 27, 2024 Assessment & Plan Admission and Anticipated Discharge Date Admission Date: December 26, 2024 Subjective Patient feels well, better than before no more pain. She is ambulating to the bathroom without dizziness or lightheadedness. She slept overnight took only IV Tylenol once. H&H is stable coags are within normal limits, vital signs stable afebrile. Discussed the findings and precautions. DC home and follow-up in office. Patient does not live locally. She lives in [place] which is [place] hour from here she has [facility] to follow-up there. Discussed plan to call. All questions were answered. Results & Data Vital Signs (Past 12 Hours) Vital Signs Temp Pulse Resp BP Pulse Ox O2 Del Method 12/27/24 03:24 36.7 C 70 16 110/69 97 Room Air 12/26/24 22:52 36.6 C 68 18 122/77 98 Room Air
[2024-12-27 08:13] VITALS: TEMP 98.2; O2SAT 99
--- NOTE | 2024-12-27 08:22 | Discharge Summary ---
Date of Service December 27, 2024 Admission HPI Per Admitting Provider patient is a 24-year-old G0 female who started to have lower pelvic, rectal pain after sexual intercourse around 4 PM. Pain got worse over time, radiated to her mid abdomen and then to right upper abdomen and then shoulder during the night. She had difficulty sleeping because of pain. She came to the ER this morning and received IV Tylenol for pain which helped little bit. She did had to receive IV morphine about 3 hours ago and it still helping. Her pain during sitting and resting is 3-4 out of 10 but when she lays down flat it radiates to her shoulder it gets worse to 8/10. She denies nausea vomiting, dizziness, lightheadedness, problems with urination or bowel movements. She has been sexually active with her boyfriend for the last 6 months they use condoms for contraception no other methods. This is her second partner in her life. She denies any history of STDs, no history of chlamydia, gonorrhea, herpes, no history of abnormal Pap smears. Her periods are every 5 weeks they last long and heavy she has been diagnosed with anemia and she has been on oral iron for that. She had CT scan ordered here in the morning which showed moderate amount of fluid in the pelvis, and left ovarian cyst which is suggesting hemorrhagic corpus luteum cyst. Her initial H&H was stable and dropped and then decision was made to admit her to the hospital for observation and possible surgery if H&H will keep dropping. Discharge Data Consultations 12/26/24 12:24 ED Decision to Admit Stat Hospital Course (1) Painful coitus, female: (2) Hemorrhagic cyst of left ovary: Patient is a 24-year-old G0 female who presented to the ER on December 26, 2024 with pelvic pain radiating to abdomen and right shoulder. On CT scan of abdomen pelvis patient was found to have enlarged ovary with hemorrhagic corpus luteum cyst and hemoperitoneum. Her vital signs were stable afebrile her pain was under control with IV Tylenol. Decision was made to admit her for observation overnight and serial H&H's And possible surgery if needed. Patient hospital stay was uncomplicated. Her pain was under control with IV Tylenol. She was able to ambulate using bathroom without dizziness or lightheadedness. Her H&H remained stable. Her vital signs were stable and afebrile. On hospital day 2 patient was doing well, vital signs stable, ambulating, using bathroom, pain has improved. Patient was discharged on December 27 with discharge instructions when to call prescriptions for pain and follow-up in our office. Patient lives in [facility] she will follow-up in her hometown. All questions were answered. (3) Pelvic pain: (4) Hemoperitoneum:
--- NOTE | 2024-12-27 09:10 | Electrocardiogram Report ---
Test Reason : Blood Pressure : */* mmHG Vent. Rate : 89 BPM Atrial Rate : 89 BPM P-R Int : 122 ms QRS Dur : 82 ms QT Int : 372 ms P-R-T Axes : 51 44 51 degrees QTcB Int : 452 ms Normal sinus rhythm with sinus arrhythmia Normal ECG No previous ECGs available Confirmed by Kimmy Harrington ([place]) on 12/27/2024 9:10:17 AM Referred By: REFERRED SELF Confirmed By: Kimmy Harrington
[2024-12-27 09:46] VITALS: BP 124/75; PULSE 69
== END 2024-12-27 13:50 | disposition home health service (06) ==
LOC: ED 07:34 → INTOOBSV 12:27 → 4E1 12:27